=== PATIENT | female | born 1945 | race Caucasian/White ===

== ENCOUNTER 2016-07-30 04:55 | Inpatient (IN) | payer MEDICARE ==
[2016-07-20 11:49] LABS: HEMATOCRIT 39.7 % (36.0-48.0); HEMOGLOBIN 13.6 g/dL (12.0-16.0)
[2016-07-20 12:11] LABS: BUN (BLOOD UREA NITROGEN) 16 MG/DL (6-23); CALCIUM, SERUM 9.4 MG/DL (8.5-10.4); CHLORIDE, SERUM 103 MMOL/L (96-112); CO2 (CARBON DIOXIDE) 27 MMOL/L (24-34); CREATININE 0.83 MG/DL (0.55-1.02); GFR AFRICAN AMERICAN 84 ML/MIN (>=60); GFR NON AFRICAN AMERICAN 72 ML/MIN (>=60); GLUCOSE, SERUM 151 MG/DL (60-99); POTASSIUM, SERUM 4.9 MMOL/L (3.5-5.3); SODIUM, SERUM 135 MMOL/L (135-148)
--- NOTE | ~2016-07-30 | OP ---
Record Of Operation [facility] [address] [place]. [address] NAME: CLAUDETTE CHIRINOS : 49 STATUS : ADM IN PAT#: [id number] AGE: 70 ADM/REG DATE : 07/30/16 MR#: [id number] REPORT SERV DATE: 07/30/16 DICTATED BY: JAYLEEN JAMA II DATE: 07/30/16 REPORT STATUS : Draft TRANSCRIBED BY: MODPhilip DATE: 07/30/16 DATE OF PROCEDURE: 07/30/2016 PREOPERATIVE DIAGNOSES: 1. Congenital fusion L2-L3. 2. Multilevel degenerative scoliosis with severe coronal collapse, right L3-4 and L4-5. 3. Right lower extremity radiculopathy. POSTOPERATIVE DIAGNOSES: 1. Congenital fusion L2-L3. 2. Multilevel degenerative scoliosis with severe coronal collapse, right L3-4 and L4-5. 3. Right lower extremity radiculopathy. PROCEDURE: 1. Lumbar laminectomy and facetectomy for decompression of the L3, L4, and L5 nerve roots. 2. Interbody arthrodesis, L3-4, L4-5. 3. Application of prosthetic devices L3-4, L4-5. 4. Posterolateral arthrodesis L3-4, L4-5. 5. Posterior segmental instrumentation L3-4, L4-5. 6. Use of local autograft, allograft substitute, and bone morphogenic protein. 7. Use of a microscope and stereotactic spinal imaging. FLUIDS: 1300 mL LR. ESTIMATED BLOOD LOSS: 100 mL. DRAIN: One. ANTIBIOTIC: Preoperatively. IMPLANTS: Alphatec. COMPLICATIONS: None. PREOPERATIVE HISTORY: This is a very friendly 70-year-old female, who treats with Dr. Godoy in [facility]. The patient reports some back pain, but predominantly pain in the right buttock and the thigh. We discussed the procedure. Fortunately, she was more leg pain than she was back pain. I discussed with her that since that was the case, we might not have to perform the entirety of the fusion construct. However L3-4 and L4-5 were coronally unstable. We discussed the risks and benefits of the surgery. She is diabetic but her hemoglobin A1c is typically under 7, she reports. We discussed the risks which include, but not limited to infection, abscess, CSF leak, foot drop, and a small chance of stroke and . DESCRIPTION OF PROCEDURE: After informed consent was obtained, the patient was brought to the operating room at her request and general anesthesia achieved. She was placed in the Record Of Operation [address] [id number] NAME: CLAUDETTE CHIRINOS : 49 STATUS : ADM IN PAT#: [id number] AGE: 70 ADM/REG DATE : 07/30/16 MR#: [id number] REPORT SERV DATE: 07/30/16 DICTATED BY: JAYLEEN JAMA II DATE: 07/30/16 REPORT STATUS : Draft TRANSCRIBED BY: RAMIREZ DATE: 07/30/16 prone position. The back was prepped and draped in a sterile fashion. The stereotactic spinal pin was placed on the left. The stereotactic guidance was then used throughout the case. Next, the right-sided incision was performed and a minimally invasive retractor placed at L3 4 and L4-5. The soft tissue was removed from the interlaminar spaces. The facet capsules were removed. The transverse processes were also dissected upon at L3, L4, and L5. Next, the medial to lateral blades also employed. We then began the decompression at L3-4. The pars was now removed with a high-speed bur, the Kerrison rongeurs, and the curettes. The L3 and L4 nerve roots were found to have severe compression upon them in the foramen and the lateral recess respectively. The central canal was also decompressed. We then worked down the L4-5 level whereupon the facetectomy was also performed and a pars resection performed. At this point, the L4 and L5 nerve roots were found to have moderate to severe compression upon them. The compression was alleviated with removal of additional ligamentum flavum and the facet. The area was now irrigated. I was pleased with the decompression of the L3, L4, and L5 nerve roots. This was again done under microscopic assistance, also with the use of stereotactic guidance. Next, the interbody arthrodesis was initiated at L3-4. The disk was now removed. The disc space was significantly collapsed more so on the right. The endplates were now prepared with the pituitary rongeurs, Kerrison rongeurs, and the curettes. Punctate bleeding bone was identified. Next, the prosthetic device was placed into the anterior column alongside allograft substitute, local autograft, and bone morphogenic protein. The prosthetic device was well placed into the anterior column. Next, the interbody arthrodesis was initiated on the right at L4-5 with gentle retraction of the L5 nerve root. The diskectomy was completed and the endplates prepared once again with the curettes, the victor hugo, and the pituitary rongeurs. The prosthetic device was then trialed and chosen and placed into the anterior column of L4-L5. Next, the pedicle screws were applied at L3, L4, and L5. The bone quality was reasonable. Percutaneous screws were placed on the left in the L3 and L5 and a repeat CT scan confirmed acceptable placement of the implants. The rods were then final tightened. Next on the right side, we then decorticated the transverse process of L3, L4, and L5. Local autograft, allograft substitute, and bone morphogenic protein were then placed along the decorticated surfaces. The standard closure was performed. At this point, the patient was pending extubation and transferred. [facility] Record Of Operation [address] [id number] NAME: CLAUDETTE CHIRINOS : 49 STATUS : ADM IN PAT#: [id number] AGE: 70 ADM/REG DATE : 07/30/16 MR#: [id number] REPORT SERV DATE: 07/30/16 DICTATED BY: JAYLEEN JAMA II DATE: 07/30/16 REPORT STATUS : Draft TRANSCRIBED BY: RAMIREZ DATE: 07/30/16 Jayleen Jama II, M.D. / [id number] CC: Estela Sifuentes II, M.D.
--- NOTE | ~2016-07-30 | DS ---
Discharge Summary [facility] [address] [place]. [address] NAME: CLAUDETTE CHIRINOS : 49 STATUS : DIS IN PAT#: [id number] AGE: 70 ADM/REG DATE : 07/30/16 MR#: [id number] REPORT SERV DATE: 08/16/16 DICTATED BY: JAYLEEN JAMA II DATE: 08/15/16 REPORT STATUS : Draft TRANSCRIBED BY: RAMIREZ DATE: 08/15/16 Data Collection from hospitalization DISCHARGE DIAGNOSES: 1. Congenital fusion, L2-L3. 2. Multi-level degenerative scoliosis with severe coronal collapse, right L3-L4, L4-L5. 3. Right lower extremity radiculopathy. 4. Diabetes mellitus. 5. Hypertension. CONSULTATIONS: None. PROCEDURES PERFORMED: 1. Lumbar laminectomy and facetectomy for decompression of the L3, L4, and L5 nerve roots. 2. Interbody arthrodesis, L3-L4 and L4-L5. 3. Application of prosthetic device, L3-L4 and L4-L5. 4. Posterolateral arthrodesis, L3-L4 and L4-L5. 5. Posterior segmental instrumentation, L3-L4 and L4-L5. 6. Use of local autograft, allograft substitute, and bone morphogenetic protein. 7. Use of the microscope and stereotactic spinal imaging, 07/30/2016. PATHOLOGY: Spine bone and tissue, L3-S1, fibrocartilage consistent with intervertebral disk, skeletal muscle with atrophy, benign bone fragments with degenerative changes. MEDICATIONS: Lipitor 40 mg at bedtime, Neurontin 100 mg daily, Cozaar 50 mg at bedtime, MS Contin 15 mg twice daily, Glucophage 500 mg every morning, Valium 2 mg one every six hours as needed for spasms, and oxycodone 5 mg one or two every 4 to 6 hours as needed. CONDITION AT DISCHARGE: Upon discharge, she did appear to be doing well and had no complaints. DISPOSITION: She had been discharged home to continue an 1800-calorie ADA diet with activity as discussed. She was to follow up with me in the office on 08/24/2016. HOSPITAL COURSE: This 70-year-old female had complaints of [id number] symptoms. Her symptoms were located in the low back with radiation into the bilateral lower extremities with associated numbness and tingling. She was last seen in the office 3 weeks prior to this admission and was status post MRI of the lumbar spine on 06/16/2016. When asked about the severity level of her symptoms, she reported a pain level of 5 on a 0 to 10 pain scale. She reported her pain and symptoms had not changed since her last visit. She did admit to the following factors that modified her symptoms: Nuxyilo-tn-pohvpgfy transition, walking, and bending worsened her pain and symptoms. Medication decreases severity of her pain and symptoms. At the time of admission, she had been taking tramadol and baclofen to treat her pain and symptoms. She was now admitted for surgery and further treatment. Upon admission to the hospital, she had been taken to the operating room where she did undergo the above procedure. She tolerated this well and was transferred to the recovery room. On postop day #1, she was evaluated by Physical Therapy. She did appear to be doing well postoperatively. She was afebrile and her vital signs were stable. On postop day #2, she did continue to do Discharge Summary [address] [address] NAME: CLAUDETTE CHIRINOS : 49 STATUS : DIS IN PAT#: [id number] AGE: 70 ADM/REG DATE : 07/30/16 MR#: [id number] REPORT SERV DATE: 08/16/16 DICTATED BY: JAYLEEN JAMA II DATE: 08/15/16 REPORT STATUS : Draft TRANSCRIBED BY: MODPhilip DATE: 08/15/16 well and had no new complaints. She was continued on supportive care. On postop day #3, she did remain in stable condition and discharge planning was begun as she continued to do well. She was then discharged on postop day #4 with the above instructions. Information collected by: Cha Ying. I submit the above information as my discharge summary. RW/MODL Jayleen Jama II, M.D. / [id number] CC: Estela Sifuentes II, M.D.
[~2016-07-30 04:55] MED LIST: COZ50 PO; GLUCPH PO; LIPITOR40 PO; NEUR100 PO
[2016-08-03] MEDS ORDERED: OXYCOD PO (11:27)
[2016-08-03] MEDS ORDERED: V2 PO (11:27)
[2016-08-03] MEDS ORDERED: MSCONT15 PO (11:27)
== END 2016-08-03 14:00 | disposition home or self-care (01) | DRG 458 ==
LOC: SDC/OF 04:55 → PACU 12:07 → 3SO 13:14
PROVIDERS: Orthopaedic Surgery
PROC: 0SG10AJ Fusion of 2 or more Lumbar Vertebral Joints with Interbody Fusion Device, Posterior Approach, Anterior Column, Open Approach (ICD-10-PCS; principal; 2016-07-30 07:15)
PROC: 0ST20ZZ Resection of Lumbar Vertebral Disc, Open Approach (ICD-10-PCS; 2016-07-30 07:15)
PROC: 4A11X4G Monitoring of Peripheral Nervous Electrical Activity, Intraoperative, External Approach (ICD-10-PCS; 2016-07-30 07:15)
DX: M41.86 Other forms of scoliosis, lumbar region (principal); I10 Essential (primary) hypertension; M43.26 Fusion of spine, lumbar region; Z79.84 Long term (current) use of oral hypoglycemic drugs; E11.9 Type 2 diabetes mellitus without complications; M51.17 Intervertebral disc disorders with radiculopathy, lumbosacral region; Z98.84 Bariatric surgery status
CPT/HCPCS: 80048; 82962; 85014; 85018; 87641; 88304; 88311; 93005; 97116-GP; 97162-GP; 97530-GP; A9270-GY; C1713; C1769; G8978-CL-GP; G8979-CI-GP; J0690; J1170; J1644; J2250; J2370; J2405; J2710; J3010